=== PATIENT | female | born 1990 | race Caucasian/White ===

== ENCOUNTER 2019-07-18 00:21 | Emergency (ER) | payer OTHER ==
[~2019-07-18] VITALS: Ht 157.5 cm; Wt 65.8 kg
[2019-07-18 03:23] VITALS: BP 136/91
[2019-07-18] MEDS ORDERED: DexAMETHasone SOD PHOS 10MG/1ML VIAL INJ IM ONE (03:45)
[2019-07-18] MEDS ORDERED: ACETAMINOPHEN/CODEINE#3 (300/30mg) TAB PO ONE (03:45)
== END 2019-07-18 04:21 | disposition home or self-care (01) ==
LOC: ER 00:27
DX: H66.93 Otitis media, unspecified, bilateral (principal); R51 Headache; J06.9 Acute upper respiratory infection, unspecified
CPT/HCPCS: 81025; 96372; 99283; J1100